=== PATIENT | female | born 1970 | race Caucasian/White ===

== ENCOUNTER 2022-10-12 07:34 | Day surgery (SDC) | payer OTHER, SELFPAY ==
[2022-10-02 10:34] VITALS: BMI 39.6
--- NOTE | 2022-10-12 | PATH_ITS ---
[facility] Accession Number: [id number] No. of containers..04 Tissue . 01 Material submitted: . PART A: endocervix - ENDOCERVICAL MASS PART B: endometrium - ENDOMETRIAL POLYP PART C: endocervix - ENDOCERVICAL CURETTAGE PART D: endometrium - ENDOMETRIAL CURETTTAGE . 01 Diagnosis: A-D. 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 Please see comment. [facility] 10/19/2022 1126 Local . 01 Comment: Immunohistochemistry findings favor an endometrial origin, but do not definitively exclude an endometrioid adenocarcinoma of endocervical origin. That determination may best be determined from the surgically excised specimen. . Dr. Sanches also reviewed this case. . 01 Electronically signed: . Herminia Green MD, Pathologist NPI- [id number] . 01 Gross description: . A. Received in formalin, labeled with the patient's name, , and designated endocervical mass, and consists of an irregular hwang, soft tissue fragment measuring 2.6 x 1.4 x 0.9 cm. The presumed margin is inked blue. Sectioning reveals a hwang, soft cut surface. The specimen is submitted entirely in cassettes A1-A2. B. Received in formalin, labeled with the patient's name, , and designated endometrial polyp, and consists of multiple hwang soft tissue fragments admixed with hemorrhagic material aggregating to 2.0 x 1.8 x 0.2 cm. The specimen is filtered into a biopsy bag and submitted entirely in cassette B1. C. Received in formalin, labeled with the patient's name, , and designated endocervical curettage, and consists of multiple hwang soft tissue fragments admixed with hemorrhagic material aggregating to 3.2 x 1.5 x 0.3 cm. The specimen is filtered into a biopsy bag and submitted entirely in cassette C1. D. Received in formalin, labeled with the patient's name, , and designated endometrial curettage, and consists of multiple hwang soft tissue fragments admixed with hemorrhagic material aggregating to 8.4 x 3.2 x 0.5 cm. The specimen is filtered into a biopsy bag and submitted entirely in cassettes D1-D5. ([id number]) /[facility] 10/13/2022 1229 Local . 01 Microscopic: . An immunohistochemistry panel is performed to further evaluate the cells of interest. The control stains show appropriate reactivity. . RESULTS: Block C1: P16: Strongly, diffusely positive. AR: Positive. PAX8: Positive. WT1: Negative. P53: Wild type pattern. CDX2: Negative. Villin: Negative. Ki-67: Patchy increase. Vimentin: Positive. Monoclonal CEA: Negative. . The neoplastic cells are positive for p16, PAX-8, AR and Vimentin. They are negative for WT-1, monoclonal CEA, cdx-2, and villin. p53 demonstrates wild-type patern and Ki-67 shows patchy, increased expression. These findings mitigate against a serous phenotype and against an ovarian or colorectal origin. An endometrial origin is favored, however, this study does not definitively exclude an endocervical origin. . C. IMMUNOHISTOCHEMISTRY TESTING FOR MISMATCH REPAIR PROTEINS: . MLH1: Intact nuclear expression. MSH2: Intact nuclear expression. MSH6: Intact nuclear expression. PMS2: Intact nuclear expression. Background nonneoplastic tissue/internal control with intact nuclear expression. . INTERPRETATION: No loss of nuclear expression of MMR proteins: low probability of microsatellite instability-high (MSI-H)* . * There are exceptions to the above IHC interpretations. These results should not be considered in isolation, and clinical correlation with genetic counseling is recommended to assess the need for germline testing. . * This test was developed and its performance characteristics determined by [facility]. It has not been cleared or approved by the U.S. Food and Drug Administration. The FDA has determined that such clearance or approval is not necessary. This test is used for clinical purposes. It should not be regarded as investigational or for research. . 01 Pathologist provided ICD-10: N94.89, C54.1 . 01 CPT . 076118, 838026, 883021, 523172, [id number], [id number] Specimen Comment: A courtesy copy of this report has been sent to [phone] Performed at: 01 [facility] [address] [place] [address], [place], [place] [id number] MD Ron Stoddard MD Phone: [phone]
[2022-10-12 07:53] VITALS: BP 148/80; PULSE 65; RESP 18; TEMP 36.2; O2SAT 98; BMI 39.6
[2022-10-12] MEDS: LACTATED RINGERS 1,000 ML 84 ML IV (08:11)
--- NOTE | 2022-10-12 09:04 | PM.PREOP ---
Pre-operative Note COVID-19 COVID-19 status: Not tested Criteria for continued procedure: Non-surgical alternatives not available or appropriate per current SOC Interval Note History & Physical reviewed/Exam performed by Physician: Yes Changes to H&P: No
--- NOTE | 2022-10-12 09:37 | SUR.OPER ---
Lithotomy on padded OR bed, head on pillow, arms secured on padded arm boards at <90 degrees abduction. Legs secured in padded yellow fins stirrups.
[2022-10-12 09:55] VITALS: BP 177/104; PULSE 76; RESP 14; TEMP 36.2; O2SAT 95
--- NOTE | 2022-10-12 09:59 | PM.GYNOP.1 ---
Operative Date/Time/Diagnoses Date of procedure: 10/12/22 Time of procedure: 09:30 Pre-op diagnosis: Postmenopausal bleeding Endometrial mass Post-op diagnosis: same Procedure & Clinicians Procedure: Procedures Operation Date: 10/12/22 09:15 Actual Procedure Side Surgeon p Hysteroscopy w/ BX's, D&C of the uterus Maxi Valentin MD Indications: Trinidad is a 52-year-old nulligravida whose last menstrual period was in October 2020 who presents for evaluation due to persistent episodes of spotting/bleeding and the presence of a 1.7 cm endometrial mass consistent with endometrial polyp on pelvic ultrasound performed in December 2021.? Patient's last Pap was 2020 and all of her Paps have been normal.? The patient has no personal/family history of gynecologic, colon, or breast malignancies.? After consideration of all options for further evaluation of the endometrial mass and postmenopausal bleeding, the patient has elected to proceed with hysteroscopy and possible biopsy/resection of endometrial mass, and dilation and curettage of the uterus.? She presents today for her scheduled surgery. Surgeon: Maxi Valentin Anesthesia Type: General Operative Notes Findings: Fleshy polypoid mass protruding from ectocervical os removed with polyp forceps. Abundant polypoid material within the endometrial cavity visualized with hysteroscope and removed with sharp curettage. Closure Type: not applicable Specimen(s): endometrial curettings and other (Endocervical polyp, endocervical curettage) Estimated blood loss (mL): 25 Blood products transfused: none Procedure in detail: With the patient under satisfactory general anesthesia in the modified dorsal lithotomy position, the perineum, vagina, and lower abdomen were prepped and draped in the usual manner for hysteroscopy/D&C. Pre-surgical safety time-out was then taken in accordance with [facility] OR protocols. A speculum was inserted in the vagina and the cervix visualized. The anterior lip of the cervix was grasped with a single-tooth tenaculum and the polypoid mass protruding through the ectocervical os was grasped with an Allis clamp and easily removed. That polypoid mass was submitted as an ectocervical polyp specimen for pathologic examination. Hysteroscopic evaluation of the endometrial cavity with saline as distention medium showed abundant polypoid material within the endometrial cavity. ECC was then performed with Rolandoian box curette and that specimen submitted as a separate pathologic specimen for evaluation. Sharp curettage of the endometrial cavity was then performed with abundant tissue obtained and submitted as an endometrial curetting specimen for pathologic evaluation. The tenaculum was removed from the anterior lip of the cervix and no bleeding was noted. Speculum was then removed from the vagina and the procedure terminated. Patient was then awakened from anesthesia and transferred to the PACU for a period of observation and recovery. Complications: none Post-operative Condition: stable Disposition: PACU Plan for aftercare: Routine postoperative care. Patient be notified of path results when available and follow-up is scheduled for 2 weeks after her surgery.
[2022-10-12 10:02] VITALS: BP 156/83; PULSE 62; RESP 12; O2SAT 97
[2022-10-12] MEDS: HYDROCODONE/ACET 5/325 TABLET 1 TAB PO ×2 (10:03→10:47)
[2022-10-12 10:06] VITALS: BP 152/87; PULSE 65; RESP 16; TEMP 36.2; O2SAT 99
[2022-10-12 10:11] VITALS: BP 157/75; PULSE 59; RESP 12; TEMP 36.4; O2SAT 100
--- NOTE | 2022-10-12 10:23 | SUR.PHASEII ---
ambulated to BR by self. few drops of blood noted on pad. cramping continues but improving.
== END 2022-10-12 10:45 | disposition home or self-care (01) ==
PROVIDERS: PCP Nurse Practitioner Family; Referring Provider Obstetrics & Gynecology; Visit Provider Obstetrics & Gynecology
PROC: 0UDB8ZZ Extraction of Endometrium, Via Natural or Artificial Opening Endoscopic (ICD-10-PCS; CPT 58558; principal; 2022-10-12 09:15)
DX: C54.1 Malignant neoplasm of endometrium (principal)
CPT/HCPCS: 58558; J1100; J1885; J2250; J2405; J2704; J3010

== ENCOUNTER → 2025-03-23 09:43 | Outpatient (CLI) | payer OTHER, SELFPAY | PROVIDERS: PCP Student in an Organized Health Care Education/Training Program; Visit Provider Obstetrics & Gynecology | DX: N39.0 Urinary tract infection, site not specified (principal) | CPT/HCPCS: 87086 ==